=== PATIENT | male | born 1995 | race Caucasian/White ===

== ENCOUNTER 2021-03-11 11:59 | Emergency (ER) | payer MEDICARE, BC, SELFPAY ==
[2021-03-11 13:56] VITALS: BP 100/58; PULSE 100; RESP 16; TEMP 36.7; O2SAT 98; BMI 29.5
[2021-03-11 14:42] LABS: UTC Strep Screen (Rapid) Negative (Negative)
--- NOTE | 2021-03-11 14:47 | [facility].EDUTC ---
[facility] [place] Disposition Clinical Impression: Upper respiratory infection Qualifiers: URI type: unspecified viral URI Qualified Code(s): J06.9 - Acute upper respiratory infection, unspecified Disposition: Home, Self-Care Condition on Discharge: Good Instructions: DI for Viral Upper Respiratory Infection -- Adult, COVID-19: Testing and Tracing Additional Instructions: covid swab was sent to lab, call tomorrow for results. self isolate until test results are known to be negative No sign of a bacterial infection. Likely viral. Viruses can take 7-14 days to run their course. Nasal saline and bulb syringe or nose Deena to remove nasal drainage to help with nasal congestion. Hard to eat, drink, sleep with nasal congestion so important to keep this cleaned out. Monitor temp. Tylenol or Motrin as needed for pain or fever Encourage fluids, water, Gatorade, Powerade, Pedialyte if infant/toddler/child Warm salt water gargles Warm fluids Sore throat lozenges Sleep elevated Humidifier/vaporizer Follow-up immediately for new or worsening symptoms or no noticeable improvement over the next 48-72 hours. Referrals: Provider,Referral, MD [Primary Care Provider] - Time of Disposition: 14:51 Medical Decision Making - Lars Inquiry Pt receiving controlled substance: No Vital Signs: 03/11/21 13:56 Temperature 98.0 F Temperature Source Oral Pulse Rate [Right] 100 H Respiratory Rate 16 Blood Pressure [Right Arm] 100/58 L Blood Pressure Mean [Right Arm] 72 Blood Pressure Source [Right Arm] Automatic Cuff Blood Pressure Position [Right Arm] Sitting 02 Sat by Pulse Oximetry 98 - Lab Data Lab Results 03/11/21 14:39: Strep Scn Rapid Clinic Negative Orders (Tests/Meds): ORDERS Category Date Time Status Covid-19 Nasal PCR ([facility]) Routine Lab 03/11/21 13:53 Received Strep Screen Confirmation Stat Micro 03/11/21 14:39 Received [facility] [place] HPI - General Chief complaint: Urgent Treatment Center Stated complaint: covid symptoms Time Seen by Provider: 03/11/21 14:47 Mode of Arrival: Ambulatory Source of Information: Patient Limitations: No Limitations Description of Symptoms (Recalled from Triage Doc. by RN): pt c/o fever, body aches, headache, congestion, diarrhea for 3 days , symptoms continue to worsen HEENT Symptoms (Recalled from RN notes): Yes (covid symtpoms) Resp Symptoms (Recalled from RN notes): No Skin Symptoms (Recalled from RN notes): No MS Symptoms (Recalled from RN notes): No Functional Status (Recalled from RN notes): na - History of Present Illness Provider Complaint: 25 yr old male presents for c/o fever, body aches, headache, congestion, diarrhea for 3 days - Related Data Allergies Allergy/AdvReac Type Severity Reaction Status Date / Time No Known Allergies Allergy Verified 03/11/21 13:55 - Worker's Comp Is this a Worker's Comp case?: No [facility] History - Hepatitis A Screen Drug use history?: No High risk sexual behaviors?: No History of sexually transmitted infection?: No Currently employed?: No Childcare worker?: No Do you have indoor plumbing?: Yes Do you have electricity?: Yes Attestation statement:: This patient has been screened for Hepatitis A risk factors. I have reviewed the patient's past medical history: Yes ROS Obtained: Yes Systems reviewed as appropriate & no additional complaints - Constitutional Constitutional: Reports system reviewed and no additional complaints, except as docu, Reports body ache, Reports chills, Reports fever(s) - Eyes Eyes: Reports system reviewed and no additional complaints, except as docu, Denies blurry vision - ENT Ears, Nose, Mouth, and Throat: Reports system reviewed and no additional complaints, except as docu, Reports nasal congestion, Reports nasal discharge, Reports sinus pressure, Reports sore throat - Cardiovascular Cardiovascular: Reports system reviewed and no additional complaints, except as docu, Denies chest pain - Respiratory
[2021-03-11 14:50] VITALS: BP 100/58; PULSE 98; RESP 16; TEMP 36.7; O2SAT 100
== END 2021-03-11 14:58 | disposition home or self-care (01) ==
PROVIDERS: Emergency Provider Nurse Practitioner Family
DX: J06.9 Acute upper respiratory infection, unspecified (principal); Z20.822 Contact with and (suspected) exposure to COVID-19
CPT/HCPCS: 87880; 99203; C9803; G0463; U0003; U0005